=== PATIENT | male | born 1995 | race American Indian/Alaskan Native ===

== ENCOUNTER 2017-01-21 14:01 | Inpatient (IN) | payer OTHER ==
[~2017-01-21] VITALS: Ht 157.5 cm; Wt 70.9 kg
[~2017-01-21 14:01] MED LIST: DEXAMETHASONE4 MG PO; FLUDROCORTISON0.1 MG PO; IBUPROFEN600 MG PO; METOPROLOL SUCC25 MG PO; NORCO 5-325 TA1 EACH PO; POTASSIUM CHLO10 MEQ PO; TYLENOL325 MG PO; ZOFRAN ODT4 MG PO
--- NOTE | 2017-01-21 15:30 | NUR ---
I WAS CALLED IN FOR THIS PT BEING UNRESPONSIVE. HIS AUNT WAS HERE, I PRAYED WITH HER. SHE WAS FAIRLY UPSET BUT I TALKED WITH HER SHE BEGAN TO CALM DOWN. SOON ANOTHER AUNT CAME IN THEN LEFT. A LITTLE LATER THE [id number] OF THE AUNT STILL THERE CAME IN AND SAT DOWN TO OFFER SUPPORT. THEN ANOTHER AUNT CAME IN. ABOUT THEN A NURSE CAME OUT AND TALKED TO THEM ABOUT CONDITION OF PT. SHORTLY THE NURSE CAME OUT AND TOOK THE AUNTS BACK TO SEE PT. NURSE SAID IT WAS OK FOR ME TO LEAVE SO I DID.
[2017-01-21] MEDS ORDERED: DEXAMETHASONE0.5 MG PO (17:17)
--- NOTE | 2017-01-21 17:51 | NUR ---
PT FAMILY PRESENT AT THIS TIME, DR VARGAS IN TALKING WITH THEM AT THIS TIME,
--- NOTE | 2017-01-21 18:17 | NUR ---
PT AWAKEN AND LIFTED HEAD OFF THE BED AND BOTH ARMS, PT GIVEN 30MG BOLUS OF DIPRIVAN PER DR VARGAS AT THE BEDSIDE. PT THEN RELAXED AND LAYED DOWN. ALSO THE DRIP WAS INCREASED . FAMILY HELPED TO KEEP PT IN THE BED.
--- NOTE | 2017-01-21 18:23 | NUR ---
PT RESTING COMFORTABLE AT THIS TIME, BEAR HUGER INPLACE AND TEMP HAS INCREASED TO 96.2.
--- NOTE | 2017-01-21 19:03 | NUR ---
PT FATHER JUST ARRIVED AND RT PRESENT TO DRAW ABG AT THIS TIME.
--- NOTE | 2017-01-21 19:22 | NUR ---
report given to manufacturing supervisor 2nd shift nurses, DR VARGAS INTO TALK WITH PTS BIO-FATHER AT THIS TIME.
--- NOTE | 2017-01-21 21:02 | NUR ---
BEDSIDE REPORT RECIEVED FROM JUAN M 1929. JUAN M RN TO ADMINISTER 15ML OF 1000MG/100ML OF PROPOFOL FOR SEDATION. PT SITTING UP IN BED, PULLING AT RESTRAINTS, MOVING HEAD BACK AND FORTH. PT CALMED AT THAT TIME. ADDITIONAL 15ML GIVEN AT 2008. DR VARGAS IN ROOM. RASS -3 WHEN SEDATED, UP TO 3+ WHEN AWAKE. AT 2004 GIVEN 2MG IV VERSED PER VERBAL DR ORDER. TITRATED PROPOFOL GTT UP TO 40MCG AT 2008 WELL AFTER RT SUCTIONING. ADDITIONAL 15ML OF PROPOFOL BOLUS GIVEN NOW FOR RASS 3+. FATHER AT BEDSIDE TO HELP PROVIDE PRESENCE TO PT AND CALM. EXPLAINED TO PT PROCEDURE AND WHERE HE WAS AT. BEAR HUGGER WARMING BLANKET REMAINS ON. LOERA TEMP PROBE IN PLACE WITH INTERNAL TEMP CURRENTLY 98.2. ET TUBE POSITION AT 22 AT THE LIP. RT TO CHECK CUFF PRESSURE. OG INSERTION HELD OFF CURRENTLY PER DR VARGAS.
--- NOTE | 2017-01-21 22:13 | NUR ---
RT IN TO DRAW ABG 2115. PT DID NOT AWAKE WITH BLOOD DRAW. REPOSITIONED PT IN BED.
--- NOTE | 2017-01-21 22:20 | NUR ---
PT AWAKENS, SHAKING HEAD, REACHING FOR ET TUBE. REASSURED AND EXPLAINED SITUATION. ADMINISTERED BOLUS DOSE OF 15ML PROPOFOL PER ORDER.
--- NOTE | 2017-01-22 01:34 | NUR ---
PT SITTING UP, COUGHING. PULLING AT RESTRAINTS. ASKED IF IN PAIN, SHOOK HEAD NO. ATTEMPTED TO CALM PT. PT REMAINS AT RASS +3. ADMINISTERED 15ML PROPOFOL IV. CALMING. REPOSITIONED TO R SIDE AND RESTRAINTS ASSESSED.
--- NOTE | 2017-01-22 02:03 | NUR ---
PT AWAKENS AND SITS UP, TRIES TO TAKE COVERS OFF. ASKED IF IN PAIN, SHOOK HEAD NO. PULLING AT COVERS. ASKED IF WANTED COVERS OFF, SHOOK HEAD YES. CORE TEMP 97.9. PT GIVEN 15ML PROPOFOL IV PUSH FOR SEDATION.
--- NOTE | 2017-01-22 03:14 | NUR ---
INCREASED PROPOFOL GTT TO 50MCG/KG/MIN PT REQUIRING MORE FREQUENT BOLUSING DOSES.
--- NOTE | 2017-01-22 04:22 | NUR ---
PT CONTINUES TO HAVE EPISODES OF INCREASED AGITATION, PULLING AT RESTRAINTS. NODS HEAD YES WHEN ASKED IF HAVING PAIN ANYWHERE. ASKED IF IT WAS IN THROAT, NODDED YES. NODDED 'NO' TO ADDITIONAL PAIN LOCATIONS. DR VARGAS CALLED, INCREASED PROPOFOL GTT TO 60MCG/KG/MIN.
--- NOTE | 2017-01-22 07:19 | NUR ---
WEANING PARAMETERS PER RT FOR PT EXTUBATION. PROPOFOL DECREASED FROM 60MCG/KG/MIN TO 30MCG/KG/MIN. PT WAS WRITING NOTES AND COMPLYING WITH COMMANDS. PT PLACED ON CPAP MODE PER RT. AWAKE, COUGHING, RESTLESS AND AGITATED, HOWEVER FOLLOWS COMMANDS. RESTRAINTS RELEASED. ON CPAP FOR APPROXIMATELY 40MIN. PROPOFOL DECREASED TO 10MCG/KG/MIN AT THAT TIME. PLACED ON STANDYBY 10MIN PRIOR TO EXTUBATION. DR VARGAS IN ROOM AT 0630 FOR EXTUBATION. EXTUBATED BY RT, COUGHED UP COPIOUS SPUTUM, ORAL SUCTION. PT REMAINS ON RA. PT EDUCATED PRIOR TO AND AFTER EXTUBATION RE: PLAN OF CARE. TOLERATED EXTUBATION WELL. SPO2 CURRENTLY 95% ON RA. LOERA CATHETER DC'D AT 0650. EXPLAINED CALL LIGHT TO PT AND TOLD TO CALL FOR ALL NEEDS. PT DEMONSTRATED USE. PLACED BED ALARM ON.
--- NOTE | 2017-01-22 07:57 | NUR ---
[facility] CALLED AND THEY WILL COME OUT AND SEE HIM AT SOMEPOINT TODAY.
--- NOTE | 2017-01-22 09:33 | NUR ---
[facility] INTO SEE PT AT THIS TIME, ALSO PT DAD AND GRANDMOTHER IS PRESENT DURING THEM TALKING.
--- NOTE | 2017-01-22 10:41 | NUR ---
AFTER CHANTELL TALK WITH PT HE WAS DISCHARGE TO HOME WITH FAMILY ALL DISCHARGE INFORMATION GIVEN TO PT AND ALL QUESTION ANSWERED AT THIS TIME. FAMILY APPEARS TO BE VERY CONCERNED WITH PT CARE AND HIS OUTCOME.
--- NOTE | 2017-01-22 13:55 | EKG ---
[facility] [address] [place] [address] Signed Normal sinus rhythm Increased R/S ratio in V1, consider early transition or posterior infarct Abnormal ECG Confirmed by PJ VARGAS MD ([id number]) on 01/22/2017 1:55:32 PM Electronically Signed By: PJ VARGAS MD 01/22/17 1355 PATIENT NAME: ERIC CORONA Electrocardiogram DATE OF : [birth year] PHYSICIAN: PJ VARGAS MD REPORT #: [id number] REPORT IS CONFIDENTIAL AND NOT TO BE RELEASED WITHOUT AUTHORIZATION
--- NOTE | 2017-01-22 13:55 | EKG ---
[facility] [address] [place] [address] Signed Normal sinus rhythm Nonspecific T wave abnormality Prolonged QT Abnormal ECG Confirmed by PJ VARGAS MD ([id number]) on 01/22/2017 1:55:38 PM Electronically Signed By: PJ VARGAS MD 01/22/17 1355 PATIENT NAME: ERIC CORONA Electrocardiogram DATE OF : [birth year] PHYSICIAN: PJ VARGAS MD REPORT #: [id number] REPORT IS CONFIDENTIAL AND NOT TO BE RELEASED WITHOUT AUTHORIZATION
== END 2017-01-22 10:30 | disposition home or self-care (01) | DRG 917 ==
LOC: ED 14:01 → CCU 16:48
PROVIDERS: ADMIT Internal Medicine
PROC: 0BH17EZ Insertion of Endotracheal Airway into Trachea, Via Natural or Artificial Opening (ICD-10-PCS; principal; 2017-01-21)
PROC: 5A1935Z Respiratory Ventilation, Less than 24 Consecutive Hours (ICD-10-PCS; 2017-01-21)
DX: T51.0X1A Toxic effect of ethanol, accidental (unintentional), initial encounter (principal); J96.01 Acute respiratory failure with hypoxia; E27.40 Unspecified adrenocortical insufficiency; I67.5 Moyamoya disease; F15.10 Other stimulant abuse, uncomplicated; E87.6 Hypokalemia
CPT/HCPCS: 31500; 31720; 36415; 36600; 51702; 70450; 71010; 80053; 80176; 81001; 82803; 83735; 84443; 85025; 92950; 93005; 93010; 94002; 94799; 96374; 96375; 96376; 99291; G0480; J0330; J1100; J1720; J2250; J2310; J2704; J3411; J3475; J3480; J7060; J7120

== ENCOUNTER → 2017-05-29 | Emergency (ER) | payer OTHER ==
[~2017-05-29] MED LIST changes: +DEXAMETHASONE0.5 MG PO
--- NOTE | 2017-05-29 06:11 | NUR ---
I WAS CALLED AT ABOUT 0310 ON THE , AND ARRIVED AT ABOUT 0345- RO[address] CONDITIONS PRETTY ROUGH. PT WAS NOT DOING WELL. HIS TWO BROTHERS AND ONE OF THEIR GIRL FRIENDS BROUGHT HIM IN. THEY HAD BEEN DRINKING AND WERE NOT IN A GOOD WAY THEMSELVES. THE GIRL FRIEND, APARNA, I HAVE KNOWN MOST OF HER LIFE, AND SHE HAS ALWAYS HAD A PROBLEM DRINKING AND SEEMS TO ALWAYS GET INVOLVED WITH PEOPLE IN THE SAME SITUATION. MEDICAL STAFF WAS ANXIOUS FOR ME TO GET HERE AND DEAL WITH THE BROTHERS BECAUSE THEY WERE BEING SO DISRUPTIVE. I TOLD THEM THAT FOR THE BENEFIT OF PT THEY HAD TO CALM DOWN, THEY COULD NOT BE YELLING AND CARRYING ON BEING SUCH A DISTURBANCE. THAT IF THEY PERSISTED I WOULD HAVE TO ESCORT THEM OUT. IT WAS UP AND DOWN FROM THERE, BUT I MANAGED TO KEEP THEM OUT OF THE WAY. WHEN AN AUNT ARRIVED, SHE WAS VERY ANGRY WITH THE BROTHERS AND SHOUTED AT ONE OF THEM, SO I THEM, THEN TOLD HER THAT THIS BEHAVIOR WAS NOT GOOD FOR PT. SHE SAID SHE UNDERSTOOD AND WOULD BE OK, AND SHE WAS. THE GRANDMOTHER ARRIVED, SO I ESCORTED HER BACK. SHE WAS VERY RESERVED, BUT VERY FOCUSED ON WELLBEING OF PT. SHE SAID THAT A IN [place] HAD TOLD THEM A YEAR EARLIER THAT PT ONLY HAD ABOUT A YEAR TO LIVE, SO THEY ALL THINK THATS IT. I TOLD HER THAT DIDNT MEAN THEY STOP ENCOURAGING HIM TO LIVE, AND SHE AGREED. THE FATHER CAME IN ABOUT THE TIME [facility] [employer] CREW ARRIVED SO I ESCORTED HIM AND THE AUNT BACK. THE BROTHERS SOON LEFT. I DONT KNOW IF DADS RESERVED STRENGTH WAS TO MUCH FOR THEM, BUT THEY LEFT. THINGS REALLY CALMED DOWN THEN. THE AUNT, DAD, AND GRANDMA STOOD BY [facility] GOT PT READY FOR TRANSPORT. TWO COUSINS WERE HERE ALSO AND WERE VERY SUPPORTIVE OF PT AND DID VERY WELL. PT WAS TAKEN AWAY, I WALKED WITH FAMILY AND STOPPED IN [facility] AREA TO ENCOURAGE THEM TO REMAIN STRONG FOR PT. THE FATHER AGREED, SAYING THEY NEED TO CHANNEL POSITIVE ENERGY TO PT. THIS FAMILY HAS A LOT OF VARYING BELIEF. WHEN I ARRIVED, I PRAYED WITH THE BROTHERS, ALTHOUGH ONE SAID HE IS ATHIEST, THE OTHER WAS BAPTIZED VOODOO, AND THE GIRLFRIEND CALIMS THE CONFUCIANIST I ATTEND HER CONFUCIANIST. I DONT KNOW ABOUT THE REST OF THE FAMILY, BUT IT SEEMS TO BE WUITE A MIXUP. I GOT THE OPPORTUNITY WITH EACH MEMBER, I OFFERED PRAYER, AND THE FATHER IS THE ONLY ONE I DID NOT PRAY WITH. I TOLD THE GRANDMOTHER AND ONE BROTHER THAT SOMETIMES WHEN PEOPLE ARE DEALING WITH ISSUES IN THEIR LIFE THAT THEY MAY GIVE UP, IT IS THEN WE MUST BE ENCOURAGING THE MOST TOWARD THEM. I PRAY THIS FAMILY FIND HEALING, NO MATTER WHAT HAPPENS WITH PT.
--- NOTE | 2017-05-31 21:44 | EKG ---
[facility] [address] [place] [address] Signed Sinus tachycardia Otherwise normal ECG When compared with ECG of 21-JAN-2017 17:41, Non-specific change in ST segment in Anterior leads Nonspecific T wave abnormality no longer evident in Anterior leads Confirmed by PJ VARGAS MD ([id number]) on 05/31/2017 9:44:30 PM Electronically Signed By: PJ VARGAS MD 05/31/17 2144 PATIENT NAME: ERIC CORONA Electrocardiogram DATE OF : [birth year] PHYSICIAN: PJ VARGAS MD REPORT #: [id number] REPORT IS CONFIDENTIAL AND NOT TO BE RELEASED WITHOUT AUTHORIZATION
== END ==
LOC: ED 03:02
PROC: 0BH17EZ Insertion of Endotracheal Airway into Trachea, Via Natural or Artificial Opening (ICD-10-PCS; principal; 2017-05-29)
DX: I46.9 Cardiac arrest, cause unspecified (principal); N17.9 Acute kidney failure, unspecified; E27.40 Unspecified adrenocortical insufficiency; E87.5 Hyperkalemia; E87.2 Acidosis; I67.5 Moyamoya disease; Z79.899 Other long term (current) drug therapy
CPT/HCPCS: 31500; 36415; 70450; 71010; 80053; 82803; 83735; 84484; 85025; 85610; 85730; 93005; 93010; 94799; 99291; 99292; G0390; J0171